=== PATIENT | female | born 1950 | race Caucasian/White ===

== ENCOUNTER → 2021-09-06 | Outpatient (CLI) | payer MEDICARE | LOC: MAMO 08-17 13:00 | DX: Z12.31 Encounter for screening mammogram for malignant neoplasm of breast (principal) | CPT/HCPCS: 77063; 77067 ==

== ENCOUNTER → 2021-12-01 | Outpatient (CLI) | payer OTHER ==
[~2021-12-01] MED LIST: ALLERGY RELIEF5 MG PO; ATORVASTATIN CA20 MG PO; FISH OIL 1,0001 EAC1 PO; FLONASE 0.05% N16 GM; HYGROTON TAB 2525 MG PO; LOPRESSOR 50 MG50 MG PO; MELOXICAM7.5 MG PO; MIRALAX; NEURONTIN300 MG PO; VITAMIN D3125 MCG PO; VOLTAREN ARTHRI20 GM TOP
[2021-12-01 13:22] LABS: HEMOGLOBIN 15.8 gm/dl (12.3-15.3); RED BLOOD COUNT 5.42 M/UL (4.00-5.10)
[2021-12-01 13:56] LABS: BUN/CREATININE RATIO 31 (0-10)
== END ==
LOC: OPSV2 12:30 → EDSTATUS 12:30 → OPSV2 12:44
PROVIDERS: Orthopaedic Surgery
DX: Z01.818 Encounter for other preprocedural examination (principal); M17.11 Unilateral primary osteoarthritis, right knee
CPT/HCPCS: 36415; 80048; 85027; 93005